=== PATIENT | male | born 1950 | race African-American/Black ===

== ENCOUNTER 2018-07-07 15:08 | Outpatient (CLI) | payer MEDICARE, BC ==
--- NOTE | 2018-07-07 15:56 | RAD ---
RIGHT HAND 3 VIEWS: HISTORY: Right hand pain. FINDINGS: Carpals appear normally aligned. The metacarpals and phalanges appear intact. MCP and IP joints unr emarkable. IMPRESSION: No acute abnormality identified. POS: [facility]
== END 2018-07-07 15:09 | disposition home or self-care (01) ==
LOC: BICRAD 15:08
PROVIDERS: ATTEND Nurse Practitioner Acute Care
DX: M79.641 Pain in right hand (principal)

== ENCOUNTER 2018-11-09 09:33 | Outpatient (CLI) | payer MEDICARE, BC ==
--- NOTE | 2018-11-09 11:27 | CT ---
CT ABDOMEN WITH ORAL AND IV CONTRAST: HISTORY: Hemoperitoneum. The patient had a hematoma in his abdomen in June 2018. The patient is on daily peritoneal dialysis. FINDINGS: There are no previous exams for comparison. The lung bases are clear. The liver, spleen, pancreas, and adrenal glands are normal. No calcified gallstones are seen. Bilateral renal cysts are present. There is a heterogeneous exophytic mass arising from the left inf erior outer cortex measuring 2.8 x 2 cm. No free air, free fluid, or lymphadenopathy is seen in the abdomen. There are vascular calcification s without evidence of aneurysmal dilatation of the abdominal aorta. There are degenerative changes i n the spine. The small bowel loops are not abnormally dilated. There is thickening of the wall of the ascending c olon. A peritoneal dialysis catheter is present. IMPRESSION: 1. Bilateral renal cysts. 2. Suspicious heterogeneously enhancing exophytic mass arising from the left kidney. 3. Wall thickening of the ascending colon. This should be evaluated with colonoscopy. POS: [facility]
== END 2018-11-09 09:34 | disposition home or self-care (01) ==
LOC: BICCT 09:33
PROVIDERS: ATTEND Urology
DX: K66.1 Hemoperitoneum (principal); N28.1 Cyst of kidney, acquired; K63.89 Other specified diseases of intestine; N28.89 Other specified disorders of kidney and ureter
CPT/HCPCS: 74160

== ENCOUNTER 2018-12-06 15:47 | Outpatient (CLI) | payer MEDICARE, BC ==
--- NOTE | 2018-12-06 16:43 | MRI ---
Cervical spine MRI without contrast: 12/06/2018 COMPARISON: None HISTORY: Neuropathy in bilateral arms and hands, diabetic polyneuropathy TECHNIQUE: Multiplanar multisequence MR imaging of the cervical spine are provided without contrast FINDINGS: The sagittal STIR imaging demonstrates no focal area of osseous marrow edema. There is moderate degenerative change at the atlantoaxial interspace. Craniocervical junction and cer vicothoracic junction appear intact. No prevertebral soft tissue swelling. No significant central canal or neural foraminal stenosis. C2-3: Minimal disc bulge with no central canal stenosis. Mild bilateral facet hypertrophy with no sig nificant neural foraminal stenosis. C3-4: There is disc space narrowing, disc desiccation, disc bulge, and central disc protrusion abutti ng the ventral aspect of the cord with effacement of the ventral thecal sac and moderate/severe central canal stenosis. Bilateral facet and uncovertebral osteophyte formation with mild bilateral ne ural foraminal stenosis. C4-5: There is disc space narrowing and disc desiccation with disc bulge. There is severe central can al stenosis with mild cord flattening. There is bilateral facet and uncovertebral osteophyte formation, left greater than right, with moderate bilateral neural foraminal stenosis. C5-6: There is disc space narrowing and disc desiccation with degenerative endplate change and disc b ulge. There is moderate associated central canal stenosis. Bilateral facet and uncovertebral osteophyte formation noted with moderate bilateral neural foraminal stenosis C6-7: There is disc space narrowing, disc desiccation, and disc bulge present with moderate central c anal stenosis. Bilateral facet and uncovertebral osteophyte formation with moderate bilateral neural foraminal stenosis. C7-T1: Mild bilateral facet hypertrophy with no significant central canal or neural foraminal stenosi s. There is no focal area of abnormal signal intensity identified within the cervical cord. IMPRESSION: Severe multilevel cervical spine degenerative change as described above.
== END 2018-12-06 15:48 | disposition home or self-care (01) ==
LOC: BICMRI 15:47
DX: E11.42 Type 2 diabetes mellitus with diabetic polyneuropathy (principal); M47.812 Spondylosis without myelopathy or radiculopathy, cervical region
CPT/HCPCS: 72141

== ENCOUNTER 2019-01-11 07:59 | Outpatient (CLI) | payer MEDICARE, BC ==
--- NOTE | 2019-01-11 09:16 | ULT ---
BILATERAL RENAL ULTRASOUND: HISTORY: Dysuria. Renal failure. Patient on dialysis. CORRELATION: CT scan from 11/09/2018. FINDINGS: The right kidney measures 10.3 cm in length, and the left kidney measures 11.4 cm in length. The kid neys are bilaterally echogenic, consistent with chronic renal failure. There are cysts in the kidney s, the largest on the right, measuring 1.5 x 1.4 x 1.4 cm; on the left measuring 2.3 x 1.5 x 1.2 cm. This left renal cyst has septations and likely corresponds to the heterogeneous mass on the CT scan. The bladder is empty. There is trace ascites in the left lower quadrant. IMPRESSION: 1. Medical renal disease. 2. Bilateral renal cysts. 3. Septated cyst in the left kidney, likely corresponding to the heterogeneous mass on the CT scan f rom 11/09/2018. Three-month followup is recommended. POS: [facility]
== END 2019-01-11 08:00 | disposition home or self-care (01) ==
LOC: BICULT 07:59
PROVIDERS: ATTEND Urology
DX: R30.0 Dysuria (principal); N28.1 Cyst of kidney, acquired
CPT/HCPCS: 76770

== ENCOUNTER 2019-02-10 14:02 | Outpatient (CLI) | payer MEDICARE, BC ==
--- NOTE | 2019-02-10 15:52 | MRI ---
EXAM: BRAIN MRI WITHOUT CONTRAST: 02/10/19 HISTORY: Elevated prolactin levels. COMPARISON: None. TECHNIQUE: Brain MRI is performed without intravenous gadolinium administration. Multisequential, multiplanar im aging was performed. Contrast could not be administered given that the patient is on dialysis. FINDINGS: The calvarium has a normal marrow signal intensity. Midline brain parenchymal structures are unremark able. Note is made of a partially empty sella. No evidence of a fullness at the level of the sella. Small focus of appreciated diffusion in the right cruz radiata. There are T2 and FLAIR white matter hyperintensities likely due to chronic small vessel ischemic villasenor ge. Central arterial flow voids are maintained. No parenchymal mass, mass effect or midline shift. Age appropriate atrophy. No evidence of hydrocephalus. Coronal images do not demonstrate any obvious pituitary mass. Evaluation is limited due to lack of IV contrast. The visualized optic nerves and prechiasmatic nerves are unremarkable. IMPRESSION: 1. No MR evidence of a macroadenoma. 2. Small focus of restricted diffusion in the anterior right cruz radiata. POS: [facility]
== END 2019-02-10 14:03 | disposition home or self-care (01) ==
LOC: SCSMRI 14:02
PROVIDERS: ATTEND Internal Medicine
DX: R51 Headache (principal); E22.1 Hyperprolactinemia
CPT/HCPCS: 70551

== ENCOUNTER 2019-03-07 11:55 | Outpatient (CLI) | payer MEDICARE, BC ==
--- NOTE | 2019-03-07 13:34 | ULT ---
US Renal Bilateral STANDARD History: Renal mass Comparison: Renal ultrasound January 11, 2019 Findings: Real-time grayscale and color evaluation of the kidneys and urinary bladder was performed. Right kidney measures 9.2 x 4.2 x 4.8 cm and the left kidney measures 7.6 x 4.5 x 3.8 cm. The cortice s are echogenic with poor corticomedullary differentiation. Multiple cysts of both kidneys, largest of the right kidney measuring up to 1.6 cm in the largest of the left kidney measuring up to 1.5 cm. Prevoid urinary bladder volume is 27 mL. No hydronephrosis. Impression: Small echogenic multicystic kidneys. Given the marked echogenicity of the kidneys, underl amita mass evaluation is limited. Follow-up renal protocol CT or MRI recommended.
== END 2019-03-07 11:56 | disposition home or self-care (01) ==
LOC: BICULT 11:55
PROVIDERS: ATTEND Urology
DX: N28.89 Other specified disorders of kidney and ureter (principal); Q61.4 Renal dysplasia
CPT/HCPCS: 76770